=== PATIENT | male | born 1970 | race Caucasian/White ===

== ENCOUNTER 2019-11-11 08:24 | Day surgery (SDC) | payer BC ==
[~2019-11-11] VITALS: Ht 172.7 cm; Wt 104.5 kg
[2019-11-11 08:52] LABS: HEMATOCRIT 49.3 % (42.0-54.0); MCH 32.1 pg (26.0-34.0); MCHC 34.5 g/dL (31.0-37.0); MCV 93.2 fL (80.0-100.0); MEAN PLATELET VOLUME 9.9 fL (7.4-10.4); RBC 5.29 10x6/uL (4.20-6.10); WBC 9.8 10x3/uL (4.8-10.8)
[2019-11-11] MEDS ORDERED: LISINOPRIL20 MG PO (09:27)
[2019-11-11] MEDS ORDERED: NORVASC10 MG PO (09:28)
[2019-11-11] MEDS ORDERED: GABAPENTIN300 MG PO (09:28)
[2019-11-11] MEDS ORDERED: LISINOPRIL40 MG PO (09:28)
[2019-11-11] MEDS ORDERED: LOPRESSOR25 MG PO (09:28)
[2019-11-11] MEDS ORDERED: XANAX0.5 MG PO (09:29)
[2019-11-11] MEDS ORDERED: DULERA 200 MCG8.8 GM INH (09:29)
[2019-11-11] MEDS ORDERED: MIRAPEX0.25 MG PO (09:29)
[2019-11-11] MEDS ORDERED: VITAMIN C500 M1 PO (09:30)
[2019-11-11] MEDS ORDERED: super B complex (09:31)
[2019-11-11] MEDS ORDERED: OMEGA-3100 MG PO (09:32)
[2019-11-11 09:43] VITALS: Ht 172.7 cm; Wt 104.5 kg
--- NOTE | 2019-11-11 13:40 | NUR ---
1230 IV DC'D. CATHETER TIP INTACT. NO BLEEDING AT SITE. BANDAID APPLIED. PT VOICES UNDERSTANDING OF DISCHARGE INSTRUCTIONS AND IS READY TO GO HOME SOON.
--- NOTE | 2019-11-12 11:06 | OP ---
PATIENT NAME: NGUYEN RENTERIA II MEDICAL RECORD: [id number] :66 LOCATION:D.OPS ADMISSION DATE: SURGEON: REGINALD NAVARRO DO DATE OF OPERATION: 11/11/2019 PROCEDURE: Colonoscopy with polypectomy. INDICATIONS FOR PROCEDURE: Colorectal bleeding and a history of hemorrhoids. SCOPE: Vidtel video pediatric colonoscope. MEDICATIONS: Propofol 320 mg IV per anesthesia. WITHDRAWAL TIME: 13 minutes. ESTIMATED BLOOD LOSS: Minimal. COMPLICATIONS: None. FINDINGS: Informed consent was given. The patient was made comfortable with the above medication. After reaching an adequate level of sedation by slow IV push, the patient was placed in the left side. A digital rectal examination was performed and was normal. The endoscope was advanced under direct visualization through the rectum to the cecum, confirmed by the presence of the appendiceal orifice and ileocecal valve. The endoscope was slowly withdrawn. Mucosa was carefully examined. The prep quality was good. There were 2 benign-appearing sessile polyps located in the cecum. They were both measured in the range of 3-4 mm in diameter. They were both removed using hot forceps. In the transverse colon, there was another benign appearing sessile polyp, which measured approximately 3-4 mm in diameter. It was removed using hot forceps. There was evidence of moderate diverticulosis involving the entire colon. There was no evidence of diverticulitis. Retroflexion was performed in the rectum with visualization of grade I internal hemorrhoids without bleeding. The endoscope was withdrawn from the patient. The patient tolerated the procedure well and there were no complications. IMPRESSION: 1. Three polyps as described above, removed using hot forceps. 2. Moderate diverticulosis of the entire colon. 3. Grade I internal hemorrhoids without bleeding. PLAN AND RECOMMENDATIONS: 1. Discharge home when recovery parameters are met. 2. Follow up with the biopsy specimen results. 3. High-fiber diet. 4. Continue current medications. 5. Recall colonoscopy in 3-5 years. TRANSINT:[id number] Voice Confirmation ID: [id number] DOCUMENT ID: [id number] OPERATIVE REPORT [id number] NGUYEN RENTERIA II REGINALD NAVARRO DO at 1106 CC: [id number] DICTATION DATE: 11/11/19 1200 [employer]: 11/11/19 2252 [facility] 11/11/19 [facility] [address] [facility] [place] [address]
== END 2019-11-11 12:45 | disposition home or self-care (01) ==
LOC: D.OPS 08:24
PROVIDERS: Anesthesiology; ATTEND Internal Medicine Gastroenterology
DX: K62.5 Hemorrhage of anus and rectum (principal); K64.0 First degree hemorrhoids